=== PATIENT | male | born 1990 | race African-American/Black ===

== ENCOUNTER 2017-03-02 18:57 | Emergency (ER) | payer SELFPAY ==
[~2017-03-02 18:57] MED LIST: ACE325 PO; ALB18R INH; AMOX-559 PO; AMOX500C7 PO; BENZ100C4 PO; CEP500 PO; CEPH-13 PO; CIPR-344 PO; CLA500 PO; CYC10 PO; CYCL-277 PO; CYCL10TA29 PO; DAR100 PO; DIA5 PO; DIAZ-1 PO; DICL-195 PO; DIP25 PO; FLUO-202 PO; FLUO40CA76 PO; GUAI120L3 PO; HYDR-3074 PO; HYDR-4308 PO; HYDR-4309 PO; IBU200 PO; IBU600 PO; IBU800 PO; IBUP-1618 PO; IBUP200C71 PO; IBUP400T13 PO; IBUP800T37 PO; IBUPROFEN; KET10 PO; LOR5 PO; LOR5/325 PO; LORA-1455 PO; MECL25TA34 PO; METH-543 PO; MULT1CAP41 PO; NAP250 PO; NAP375 PO; NAPR500T75 PO; NO MEDS; NO ROUTINE MEDS; OMEP-218 PO; OMEP40CA45 PO; OND4 PO; OXYC-763 PO; OXYC1TAB54 PO; PER PO; POTA20TA10 PO; PRED-314 PO; PRED20TA6 PO; PROM-110 PO; QUET50TA21 PO; SUC1 PO; TRAM-420 PO; TRAM-627 PO
[2017-03-02] MEDS ORDERED: ORPHENADRINE 60MG/2ML INJ IM ONE (19:20)
[2017-03-02] MEDS ORDERED: KETOROLAC 30 MG/ML VIAL IVP ONE (19:20)
--- NOTE | 2017-03-02 19:21 | ER Report ---
History and Physical Time Seen By MD: 19:09 Hx. of Stated Complaint: Patient hurt back playing basketball yesterday when he planted after a jump. HPI/ROS CHIEF COMPLAINT: Back pain HISTORY OF PRESENT ILLNESS: This is a 26-year-old male who presents to the emergency department for lower back pain. Patient states that he was playing basketball yesterday afternoon came down after a jump shot and suddenly felt some lower back pain with pain, numbness and tingling down both buttocks into the back of her posterior legs bilaterally. Patient states he's been taking ibuprofen and Tylenol home with little to no relief. Patient states he just once today what is going on and doesn't even care about the medications at this point. Patient is in obvious pain while in the in the exam room. Patient denies loss of bowel or bladder. Patient has no other complaints no nausea, vomiting, coughs or colds. REVIEW OF SYSTEMS: Respiratory: No cough, no dyspnea. Cardiovascular: No chest pain, no palpitations. Gastrointestinal: No vomiting, no abdominal pain. Musculoskeletal: As above. Allergies: Coded Allergies: No Known Allergies (Verified Allergy, Mild, 01/21/17) Home Meds Active Scripts Methocarbamol (ROBAXIN) 500 Mg Tablet, 1000 MG PO QID, #32 TAB Prov:SAUNDRA ROJAS ADVERTISING STATISTICAL CLERK-BC 03/02/17 Discontinued Scripts Diclofenac Sodium (DICLOFENAC SODIUM) 75 Mg Tablet., 75 MG PO BID Y for prn, # 14 TAB Prov:HERMILA EDWARD PA-C 01/21/17 Past Medical/Surgical History Patient has a past medical and surgical history of "a minor heart attack", fracture of the ankles, elbow, sternum and both wrists, appendectomy. Reviewed Nurses Notes: Yes Hx Smoking: No Smoking Status: Current: Some Days Smoker Exposure to Second Hand Smoke?: No Hx Substance Use Disorder: No Hx Alcohol Use: No Constitutional Vital Sign - Last 24 Hours 03/02/17 03/02/17 03/02/17 03/02/17 19:00 19:02 19:02 19:07 Temp 98.9 Pulse 99 95 Resp 18 B/P (MAP) 98/87 (91) 98/87 Pulse Ox 91 96 100 O2 Delivery Room Air 03/02/17 03/02/17 03/02/17 03/02/17 19:13 19:52 19:57 20:02 Pulse 90 71 70 B/P (MAP) 137/80 (99) Pulse Ox 98 98 98 03/02/17 03/02/17 03/02/17 03/02/17 20:07 20:11 20:12 20:27 Pulse 74 70 B/P (MAP) 115/75 (88) Pulse Ox 98 96 98 03/02/17 03/02/17 03/02/17 03/02/17 20:32 20:37 20:40 20:42 Pulse 75 69 72 B/P (MAP) 134/77 (96) Pulse Ox 97 96 98 03/02/17 20:47 Pulse 73 Pulse Ox 97 Physical Exam General Appearance: The patient is alert, has no immediate need for airway protection and no current signs of toxicity. Eyes: Pupils equal and round no injection. Respiratory: Chest is non tender, lungs are clear to auscultation. Cardiac: regular rate and rhythm, no murmurs, clicks or rubs. Gastrointestinal: Abdomen is soft and non tender, no masses, bowel sounds normal. Musculoskeletal: Neck: Neck is supple and non tender. No ecchymosis, crepitus, obvious deformities to the lower back. Musculature is very tight to the lower back. Increased back pain with straight leg raise bilaterally. Extremities have full range of motion and are non tender. Skin: No rashes or lesions. DIFFERENTIAL DIAGNOSIS: After history and physical exam differential diagnosis was considered for back pain including but not limited to muscular pain, herniated disc, spine fracture, intra-abdominal causes and urinary tract infection. Medical Decision Making EKG/Imaging Imaging FACILITY: [facility] - [place] PATIENT NAME: Constantine Padilla : 1990 MR: [id number] V: [id number] EXAM DATE: [id number] ORDERING PHYSICIAN: SAUNDRA ROJAS TECHNOLOGIST: Location: [facility] - [place], [place] Patient: Constantine Padilla : 1990 Visit/Account:[id number] Date of Sevice: 03/02/2017 LUMBAR SPINE 4 VIEWS Indication: Low back pain. Comparison: 09/16/2016. Findings: AP, lateral, and bilateral obliques of the lumbar spine. Straightening of the normal lordosis. Otherwise normal alignment, vertebral body height, and intervertebral disc height. No significant degenerative changes. No pars defects. Mildly dilated small bowel loops in the abdomen measuring up to 4.2 cm in diameter. IMPRESSION: 1. Straightening of the normal lumbar lordosis. Otherwise negative lumbar spine radiographs. 2. Mildly dilated loops of small bowel measuring up to 4.2 cm, possibly small bowel obstruction or ileus. Results were called to SAUNDRA ROJAS at 03/02/2017 8:44 PM. Report Dictated By: Saundra Rawls MD at 03/02/2017 8:37 PM Report E-Signed By: Saundra Rawls MD at 03/02/2017 9:00 PM WSN:[id number] ED Course/Re-evaluation ED Course The patient was admitted to room. History and physical were obtained. Differential diagnoses were considered. A 3 view lumbar x-ray was obtained showing straightening of the normal lumbar lordosis otherwise negative. Ancillary finding was mildly dilated loops of the small bowel there was concern by radiology that he had a small bowel obstruction or an ileus. The patient states he has a normal bowel regimen had a normal bowel movement today maybe a little extra gas but otherwise normal, no pain or discomforts in the abdomen. 30 mg IM Toradol was given, 60 mg IM Norflex were given, with mild relief. I did review these results with the patient. The patient states he is ready to go home at this time. A prescription for Robaxin was called and the patient's pharmacy. The patient's was instructed to take 600-800 mg of ibuprofen as needed for his discomfort. The patient had no other questions or concerns at this time and was discharged home. The patient was also encouraged to follow up with his primary care provider for future needs. Patient was also encouraged to return to the emergency department for worsening symptoms. Decision to Disposition Date: Mar 02, 2017 Decision to Disposition Time: 21:11 Depart Departure Latest Vital Signs Vital Signs Date Time Temp Pulse Resp B/P (MAP) Pulse Ox O2 Delivery O2 Flow Rate FiO2 03/02/17 20:47 73 97 03/02/17 20:40 134/77 (96) 03/02/17 19:02 98.9 18 Room Air Impression: Primary Impression: Low back pain Condition: Improved Disposition: HOME OR SELF-CARE New Scripts Methocarbamol (ROBAXIN) 500 Mg Tablet 1000 MG PO QID, #32 TAB Prov: SAUNDRA ROJAS-BC 03/02/17 Patient Instructions: Acute Low Back Pain (ED) Additional Instructions: Drink plenty of fluids Get plenty of rest. Take 600-800mg every 6-8 hours as needed for pain. Take the Robaxin up to 4 times a day for muscle spasms. Please follow up with your primary care provider for future needs. May return to the ED for worsening symptoms. Problem Qualifiers Primary Impression: Low back pain Chronicity: acute Back pain laterality: bilateral Sciatica presence: without sciatica Qualified Codes: M54.5 - Low back pain SAUNDRA ROJAS-BC Mar 02, 2017 19:21
[2017-03-02] MEDS ORDERED: KETOROLAC 30 MG/ML VIAL IM ONE (19:45)
--- NOTE | 2017-03-02 21:03 | RADIOLOGY IMAGING REPORT ---
FACILITY: [facility] PATIENT NAME: Constantine Padilla : 1990 MR: [id number] V: [id number] EXAM DATE: ORDERING PHYSICIAN: SAUNDRA ROJAS TECHNOLOGIST: Location: [facility] - [place] Patient: Constanitne Padilla : 1990 Visit/Account:[id number] Date of Sevice: 03/02/2017 LUMBAR SPINE 4 VIEWS Indication: Low back pain. Comparison: 09/16/2016. Findings: AP, lateral, and bilateral obliques of the lumbar spine. Straightening of the normal lordosis. Otherwise normal alignment, vertebral body height, and interver tebral disc height. No significant degenerative changes. No pars defects. Mildly dilated small bowel loops in the abdomen measuring up to 4.2 cm in diameter. IMPRESSION: 1. Straightening of the normal lumbar lordosis. Otherwise negative lumbar spine radiographs. 2. Mildly dilated loops of small bowel measuring up to 4.2 cm, possibly small bowel obstruction or il eus. Results were called to SAUNDRA ROJAS at 03/02/2017 8:44 PM. Report Dictated By: Saundra Rawls MD at 03/02/2017 8:37 PM Report E-Signed By: Saundra Rawls MD at 03/02/2017 9:00 PM WSN:[id number]
[2017-03-02] MEDS ORDERED: METH-542 PO (21:16)
[2017-03-02 21:20] VITALS: BP 133/79
== END 2017-03-02 21:29 | disposition home or self-care (01) ==
LOC: ER 18:59
DX: M54.5 Low back pain (principal); Y93.67 Activity, basketball
CPT/HCPCS: 72120; 96372; 99283; J1885; J2360

== ENCOUNTER 2017-07-04 14:30 | Emergency (ER) | payer SELFPAY ==
[~2017-07-04 14:30] MED LIST changes: +METH-542 PO
--- NOTE | 2017-07-04 14:40 | ER Report ---
History and Physical Time Seen By MD: 14:39 Hx. of Stated Complaint: patient hurt L wrist about 2 weeks while playing baskwtball and then 2 days ago at work was lifting heavy lawn bag above head and heard pop and has been painful since HPI/ROS CHIEF COMPLAINT: Left wrist pain HISTORY OF PRESENT ILLNESS: This is a 27-year-old male who presents to the emergency department for left wrist pain. Patient states that about 2-3 weeks ago he was playing basketball, injured his left wrist. [place] like it was improving, then the last couple days at work while lifting he reinjured his left wrist. Patient has wrist pain to the radial and ulnar side however the majority the pain is on the ulnar side. Decreased digital design engineer strength. No numbness or tingling or obvious deformities. No nausea vomiting, diarrhea, aches or chills. REVIEW OF SYSTEMS: Respiratory: No cough, no dyspnea. Cardiovascular: No chest pain, no palpitations. Gastrointestinal: No vomiting, no abdominal pain. Musculoskeletal: As above. Allergies: Coded Allergies: No Known Allergies (Verified Allergy, Mild, 07/04/17) Home Meds Discontinued Scripts Methocarbamol (ROBAXIN) 500 Mg Tablet, 1000 MG PO QID, #32 TAB Prov:SAUNDRA ROJAS [facility]- 03/02/17 Past Medical/Surgical History Patient has a history of "a minor heart attack", bilateral ankle fractures, right elbow fracture, "sternum fracture" the right and left wrist fractures", appendectomy. Reviewed Nurses Notes: Yes Hx Smoking: No Smoking Status: Current: Some Days Smoker Exposure to Second Hand Smoke?: No Hx Substance Use Disorder: No Hx Alcohol Use: No Constitutional Vital Sign - Last 24 Hours 07/04/17 07/04/17 07/04/17 07/04/17 14:30 14:33 14:34 14:45 Temp 98.7 Pulse ??? 93 ??? Resp 16 B/P (MAP) 113/74 (87) 113/74 Pulse Ox 95 07/04/17 07/04/17 07/04/17 15:00 15:30 16:09 Pulse ??? B/P (MAP) 111/68 (82) 113/99 (104) 107/66 (80) Physical Exam General Appearance: The patient is alert, has no immediate need for airway protection and no current signs of toxicity. Eyes: Pupils equal and round no injection. Respiratory: Chest is non tender, lungs are clear to auscultation. Cardiac: regular rate and rhythm. Gastrointestinal: Abdomen is soft and non tender, no masses, bowel sounds normal. Musculoskeletal: Neck: Neck is supple and non tender. Extremities have full range of motion. Examination of the Left hand reveals no acute deformity. The patient is able to give a thumbs up sign, is able to make an okay sign, and is able to AB duct the fingers, but is painful to the radial and ulnar side of wrist. Sensation is intact over the dorsal 1st web space, the volar aspect of the 2nd finger, and the volar aspect of the 5th finger. Capillary refill is brisk.. Skin: No rashes or lesions. DIFFERENTIAL DIAGNOSIS: After history and physical exam differential diagnosis was considered for wrist fracture, tendinitis, navicular fracture and contusion. Medical Decision Making EKG/Imaging Imaging Location[place] [facility] [place] Patient: Constantine Padilla : 1990 Visit/Account:[id number] Date of Sevice: 07/04/2017 Technique: WRIST LEFT MIN 3 VIEW HISTORY: pain, injury while playing basketball and work Comparison studies: None FINDINGS: There is no acute fracture. The alignment of the left wrist is maintained. Soft tissues are unremarkable. IMPRESSION: 1. No acute osseous process. Report Dictated By: Bill Morris DO at 07/04/2017 3:19 PM Report E-Signed By: Bill Morris DO at 07/04/2017 3:20 PM WSN:[id number] ED Course/Re-evaluation ED Course The patient was admitted to a room. A history and physical were obtained. Differential diagnoses were considered. A wrist x-ray was negative for any acute osseous abnormalities. I did review these results with the patient. Patient was placed in a universal splint. I did tell the patient that I was concerned that he does have a ligament injury and instructed him to follow up with [facility] in 7-14 days for reevaluation. The patient was in agreement with this plan of care. Patient was also encouraged to keep the wrist splint on for comfort take it out every 2-3 hours to perform some gentle range of motion exercises. He is also instructed to take Advil or Tylenol as needed for the pain. Patient had no other questions or concerns at this time was discharged home. Patient was in agreement with this plan of care. Decision to Disposition Date: July 04, 2017 Decision to Disposition Time: 16:07 Depart Departure Latest Vital Signs Vital Signs Date Time Temp Pulse Resp B/P (MAP) Pulse Ox O2 Delivery O2 Flow Rate FiO2 07/04/17 16:09 107/66 (80) 07/04/17 15:00 ??? 07/04/17 14:34 98.7 16 95 Impression: Primary Impression: Left wrist sprain Condition: Improved Disposition: HOME OR SELF-CARE Referrals: [facility] New Scripts No Active Prescriptions or Reported Meds Patient Instructions: Wrist Sprain (ED) Additional Instructions: Drink plenty of water. Get plenty of rest. Keep the wrist splint on while at work take it out every 2-3 hours perform gentle range of motion exercises. Follow-up with [facility] for reevaluation of the left wrist in 7- 14 days. You can take ibuprofen or Tylenol as needed for the pain. Return to the emergency department for any other concerns or worsening symptoms. Problem Qualifiers Primary Impression: Left wrist sprain Encounter type: initial encounter Qualified Codes: S63.502A - Unspecified sprain of left wrist, initial encounter SAUNDRA ROJAS-TAMMIE July 04, 2017 14:40
--- NOTE | 2017-07-04 15:23 | RADIOLOGY IMAGING REPORT ---
FACILITY: [facility] - [place] PATIENT NAME: Constantine Padilla : 1990 MR: [id number] V: [id number] EXAM DATE: ORDERING PHYSICIAN: SAUNDRA ROJAS TECHNOLOGIST: Location: [facility] Patient: Constantine Padilla : 1990 Visit/Account:[id number] Date of Sevice: 07/04/2017 Technique: WRIST LEFT MIN 3 VIEW HISTORY: pain, injury while playing basketball and work Comparison studies: None FINDINGS: There is no acute fracture. The alignment of the left wrist is maintained. Soft tissues a re unremarkable. IMPRESSION: 1. No acute osseous process. Report Dictated By: Bill Morris DO at 07/04/2017 3:19 PM Report E-Signed By: Bill Morris DO at 07/04/2017 3:20 PM WSN:[id number]
[2017-07-04 16:09] VITALS: BP 107/66
== END 2017-07-04 16:13 | disposition home or self-care (01) ==
LOC: ER 14:32
DX: S63.502A Unspecified sprain of left wrist, initial encounter (principal)
CPT/HCPCS: 99283; L3908

== ENCOUNTER 2017-09-18 08:44 | Emergency (ER) | payer SELFPAY ==
[~2017-09-18 08:44] MED LIST changes: +IBUP-136 PO; -IBUP200C71 PO
[2017-09-18 08:47] VITALS: BP 134/87
--- NOTE | 2017-09-18 08:59 | ER Report ---
History and Physical Time Seen By MD: 08:59 Hx. of Stated Complaint: FELL ONTO RIGHT ELBOW WHILE PLAYING BASKETBALL ONE MONTH AGO. C/O CONTINUED PAIN HPI/ROS CHIEF COMPLAINT: Elbow pain HISTORY OF PRESENT ILLNESS: This is a 27-year-old male. He fell onto his right elbow about a month ago while playing basketball. He has been having pain ever since as well as welling. He cannot put a lot of pressure on the elbow without pain. He will push down on a flat surface with his hand and feels like his elbow is weak and that it might come apart, suspicious for a ligament injury. Came today because it is not improving and more swollen than usual. No fevers or chills with this. No shortness of breath. No other swelling. He has numbness and tingling in the right 4th and 5th fingers of the right hand that comes and goes. 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 Allergies: Coded Allergies: No Known Allergies (Verified Allergy, Mild, 07/04/17) Home Meds No Active Prescriptions or Reported Meds Reviewed Nurses Notes: Yes Hx Smoking: No Smoking Status: Current: Some Days Smoker Exposure to Second Hand Smoke?: No Hx Substance Use Disorder: No Hx Alcohol Use: No Constitutional Vital Sign - Last 24 Hours 09/18/17 08:47 Temp 97.6 Pulse 63 Resp 18 B/P (MAP) 134/87 Pulse Ox 97 O2 Delivery Room Air Physical Exam General: Alert, but no acute distress. Healthy appearing. Musculoskeletal: Swelling and pain diffuse in the elbow. Spares the olecranon, but hurts over both epicondyles and in the anticubital area. No pain above or below the elbow with palpation. Cannot straiten all the way, perhaps only to 10 degrees but then with significant pain. Cannot flex to 90degrees or beyond without pain. Skin: Swelling but no warmth or redness, no breakdown or rashes. Neuro: some tingling in 4th and 5th fingers at this time. Cardio: Normal pulses and capillary refill. Medical Decision Making EKG/Imaging Imaging ELBOW 3 VIEWS RIGHT Indication: Elbow pain. Basketball injury. Comparison: None Available Findings: 3 views of the right elbow are obtained. Best appreciated on the lateral view, there is an intermediate to large right elbow joint effusion identified. No definitive acute fracture is seen at the elbow. Given the presence of the joint effusion, an occult fracture must be considered in the differential. Small spurring is seen along the medial margin of the ulna-humeral joint. This is likely degenerative. No soft tissue swelling seen about the elbow. IMPRESSION: 1. Intermediate to large right elbow joint effusion. Consideration must be given to an occult fracture at the elbow given this finding in the setting of trauma. Correlate clinically. Consider immobilization and follow-up images. 2. Small degenerative spurs along the ulna-humeral joint. Report Dictated By: Hai Rosales at 09/18/2017 9:41 AM ED Course/Re-evaluation ED Course Probable ligamentous injury, but cannot entirely exclude occult fracture, but based on timing would have expected to see bone remodeling if one existed. Will splint and sling and refer to [facility] for further evaluation and treatment. Decision to Disposition Date: Sep 18, 2017 Decision to Disposition Time: 11:03 Depart Departure Latest Vital Signs Vital Signs Date Time Temp Pulse Resp B/P (MAP) Pulse Ox O2 Delivery O2 Flow Rate FiO2 09/18/17 08:47 97.6 63 18 134/87 97 Room Air Impression: Primary Impression: Elbow injury Condition: Improved Disposition: HOME OR SELF-CARE New Scripts No Active Prescriptions or Reported Meds Patient Instructions: Elbow Sprain (ED) Additional Instructions: With your elbow injury a few weeks ago, you may have had a ligamentous injury. We did not see a fracture on x-ray, but cannot entirely rule out a small fracture. We would like to have you use the splint and sling and follow-up with orthopedic surgery. Call [facility] today to schedule a follow-up appointment with them. Take Ibuprofen 200mg over the counter tablets, take 3-4 every 8 hours as needed for pain. Apply ice over the splint every 1-2 hours for about 10-15 minutes while awake. Problem Qualifiers Primary Impression: Elbow injury Encounter type: initial encounter Laterality: left Qualified Codes: S59.902A - Unspecified injury of left elbow, initial encounter AJIT MAN MD Sep 18, 2017 08:59
--- NOTE | 2017-09-18 09:50 | RADIOLOGY IMAGING REPORT ---
FACILITY: [facility] - [place] PATIENT NAME: Constantine Padilla : 1990 MR: [id number] V: [id number] EXAM DATE: ORDERING PHYSICIAN: AJIT MAN TECHNOLOGIST: Location: [facility] Patient: Constantine Padilla : 1990 Visit/Account:[id number] Date of Sevice: 09/18/2017 ELBOW 3 VIEWS RIGHT Indication: Elbow pain. Basketball injury. Comparison: None Available Findings: 3 views of the right elbow are obtained. Best appreciated on the lateral view, there is an intermedi ate to large right elbow joint effusion identified. No definitive acute fracture is seen at the elbo w. Given the presence of the joint effusion, an occult fracture must be considered in the differenti al. Small spurring is seen along the medial margin of the ulna-humeral joint. This is likely degene rative. No soft tissue swelling seen about the elbow. IMPRESSION: 1. Intermediate to large right elbow joint effusion. Consideration must be given to an occult fract ure at the elbow given this finding in the setting of trauma. Correlate clinically. Consider immobi lization and follow-up images. 2. Small degenerative spurs along the ulna-humeral joint. Report Dictated By: Hai Rosales at 09/18/2017 9:41 AM Report E-Signed By: Hai Rosales at 09/18/2017 9:46 AM WSN:[id number]
== END 2017-09-18 11:28 | disposition home or self-care (01) ==
LOC: ER 08:53
DX: S59.902A Unspecified injury of left elbow, initial encounter (principal)
CPT/HCPCS: 73080; 99283; A4565

== ENCOUNTER → 2018-01-10 | Outpatient (REF) ==
[~2018-01-10] MED LIST changes: -HYDR-4308 PO; -HYDR-4309 PO; +HYDR-653 PO; +HYDR-654 PO
--- NOTE | 2018-01-10 20:06 | RT STRESS TEST REPORT ---
FACILITY: [facility] - [place] PATIENT NAME: MARISOL TELLO : [id number] MR: [id number] V: [id number] EXAM DATE: ORDERING PHYSICIAN: DUSTIN EDWARDS TECHNOLOGIST: Rhiannon Acquisition Time: 2018-01-10 14:00:40 Total Exercise Time: 00:13:00 Test Indications: Chest Pain / Discomfort Medications: N/A Protocol: BRUCE2 Max HR: 179 BPM 93% of Pred: 192 BPM Max BP: 185/097 mmHG Max Work Load: 16.9 METS Good quality test, test was terminated due to patient request and fatigue. Patient exceeded target heart rate and remained asymptomatic throughout test. No concerning EKG changes were noted at any time during test. No ectopy noted during test. Negative stress EKG. Confirmed by Javon Ochoa ([id number]) on 01/10/2018 8:05:42 PM Referred By: Overread By: Javon Bui
== END ==
LOC: RESP 01-04 06:49 → EDSTATUS 01-04 09:00 → RESP 00:28
PROVIDERS: ATTEND Nurse Practitioner
DX: R07.9 Chest pain, unspecified (principal)
CPT/HCPCS: 93017

== ENCOUNTER 2018-01-29 08:33 | Emergency (ER) | payer SELFPAY ==
--- NOTE | 2018-01-29 08:53 | ER Report ---
History and Physical Time Seen By MD: 08:54 Hx. of Stated Complaint: LEFT SIDED CHEST PAIN RADIATING DOWN LEFT ARM SINCE 0600 HPI/ROS CHIEF COMPLAINT: chest pain HISTORY OF PRESENT ILLNESS: Patient is a 27-year-old male with no contributory past medical history who states that he woke around 6 AM this morning with sever e chest spasms with radiation down the left arm. Patient's had chest pain similar to this in the past. He is quite uncomfortable and it seems to be coming in waves. Patient is nonsmoker. He has no history of hypertension or hypercholesterolemia. REVIEW OF SYSTEMS: Constitutional: No fever, no chills. Eyes: No discharge. ENT: No sore throat. Cardiovascular: Chest pain Respiratory: No cough, no shortness of breath. Gastrointestinal: No abdominal pain, no vomiting. Genitourinary: No hematuria. Musculoskeletal: No back pain. Skin: No rashes. Neurological: No headache. Allergies: Coded Allergies: No Known Allergies (Verified Allergy, Mild, 07/04/17) Home Meds Active Scripts Cyclobenzaprine Hcl (CYCLOBENZAPRINE HCL) 10 Mg Tablet, 10 MG PO TID for Muscle Relaxant, #9 TAB 0 Refills Prov:SAHARA CRAVEN MD 01/29/18 Naproxen (NAPROXEN) 375 Mg Tablet, 375 MG PO TID, #30 TAB 0 Refills Prov:SAHARA CRAVEN MD 01/29/18 Past Medical/Surgical History Noncontributory Hx Smoking: No Smoking Status: Current: Some Days Smoker Exposure to Second Hand Smoke?: No Hx Substance Use Disorder: No Hx Alcohol Use: No Constitutional Vital Sign - Last 24 Hours 01/29/18 08:36 Temp 98.4 Pulse 90 Resp 20 B/P (MAP) 123/91 Pulse Ox 95 O2 Delivery Room Air Physical Exam General/Constitutional: Patient is awake, alert, nontoxic and in no acute respiratory distress. Head: Normocephalic and atraumatic. Eyes: Conjunctival clear, Pupils are equal and reactive to light. Ears:External canals are clear. Tympanic membranes are clear with normal landmarks and light reflex. Neck: Supple, no adenopathy. Cardiovascular: Heart is regular rate and rhythm without audible murmurs, rubs or gallops. Pulmonary: Lungs are clear to auscultation bilaterally. There are no wheezes, rales, or rhonchi. Chest rise is symmetrical Abdomen: Soft, nontender, no guarding or peritoneal signs. Extremities: No gross deformities, No peripheral cyanosis. Able to move all 4 extremities. Neuro: Alert and oriented X3, Skin: No rashes, skin is warm dry and well perfused. Medical Decision Making Data Points Result Diagram: 01/29/18 0853 01/29/18 0853 Laboratory Hematology Test 01/29/18 08:53 Red Blood Count 5.35 M/uL (4.00-5.60) Mean Corpuscular Volume 87.8 fL (80.0-96.0) Mean Corpuscular Hemoglobin 29.7 pg (26.0-33.0) Mean Corpuscular Hemoglobin Concent 33.8 g/dL (32.0-36.0) Red Cell Distribution Width 13.7 % (11.5-14.5) Mean Platelet Volume 7.3 fL (7.2-11.1) Neutrophils (%) (Auto) 57.4 % (39.4-72.5) Lymphocytes (%) (Auto) 33.1 % (17.6-49.6) Monocytes (%) (Auto) 8.4 % (4.1-12.4) Eosinophils (%) (Auto) 0.6 % (0.4-6.7) Basophils (%) (Auto) 0.5 % (0.3-1.4) Nucleated RBC Relative Count (auto) 0.1 /100WBC Neutrophils # (Auto) 2.8 K/uL (2.0-7.4) Lymphocytes # (Auto) 1.6 K/uL (1.3-3.6) Monocytes # (Auto) 0.4 K/uL (0.3-1.0) Eosinophils # (Auto) 0.0 K/uL (0.0-0.5) Basophils # (Auto) 0.0 K/uL (0.0-0.1) Nucleated RBC Absolute Count (auto) 0.00 K/uL Prothrombin Time 13.0 seconds (12.0-14.4) Prothromb Time International Ratio 0.98 Activated Partial Thromboplast Time 29 seconds (23-35) Sodium Level 143 mmol/L (137-145) Potassium Level 3.8 mmol/L (3.5-5.0) Chloride Level 108 mmol/L (98-107) Carbon Dioxide Level 25 mmol/L (22-30) Blood Urea Nitrogen 11 mg/dl (9-21) Creatinine 1.00 mg/dl (0.66-1.25) Glomerular Filtration Rate Calc > 60.0 Random Glucose 75 mg/dl (75-110) Calcium Level 9.3 mg/dl (8.4-10.2) Total Bilirubin 0.6 mg/dl (0.2-1.3) Aspartate Amino Transf (AST/SGOT) 44 U/L (0-35) Alanine Aminotransferase (ALT/SGPT) 43 U/L (0-56) Alkaline Phosphatase 42 U/L (0-126) Troponin I < 0.012 ng/ml Total Protein 7.3 g/dl (6.3-8.2) Albumin 4.4 g/dl (3.5-5.0) Chemistry Test 01/29/18 08:53 White Blood Count 4.9 k/uL (4.5-11.0) Red Blood Count 5.35 M/uL (4.00-5.60) Hemoglobin 15.9 g/dL (14.0-18.0) Hematocrit 47.0 % (42.0-52.0) Mean Corpuscular Volume 87.8 fL (80.0-96.0) Mean Corpuscular Hemoglobin 29.7 pg (26.0-33.0) Mean Corpuscular Hemoglobin Concent 33.8 g/dL (32.0-36.0) Red Cell Distribution Width 13.7 % (11.5-14.5) Platelet Count 239 K/uL (150-450) Mean Platelet Volume 7.3 fL (7.2-11.1) Neutrophils (%) (Auto) 57.4 % (39.4-72.5) Lymphocytes (%) (Auto) 33.1 % (17.6-49.6) Monocytes (%) (Auto) 8.4 % (4.1-12.4) Eosinophils (%) (Auto) 0.6 % (0.4-6.7) Basophils (%) (Auto) 0.5 % (0.3-1.4) Nucleated RBC Relative Count (auto) 0.1 /100WBC Neutrophils # (Auto) 2.8 K/uL (2.0-7.4) Lymphocytes # (Auto) 1.6 K/uL (1.3-3.6) Monocytes # (Auto) 0.4 K/uL (0.3-1.0) Eosinophils # (Auto) 0.0 K/uL (0.0-0.5) Basophils # (Auto) 0.0 K/uL (0.0-0.1) Nucleated RBC Absolute Count (auto) 0.00 K/uL Prothrombin Time 13.0 seconds (12.0-14.4) Prothromb Time International Ratio 0.98 Activated Partial Thromboplast Time 29 seconds (23-35) Glomerular Filtration Rate Calc > 60.0 Calcium Level 9.3 mg/dl (8.4-10.2) Total Bilirubin 0.6 mg/dl (0.2-1.3) Aspartate Amino Transf (AST/SGOT) 44 U/L (0-35) Alanine Aminotransferase (ALT/SGPT) 43 U/L (0-56) Alkaline Phosphatase 42 U/L (0-126) Troponin I < 0.012 ng/ml Total Protein 7.3 g/dl (6.3-8.2) Albumin 4.4 g/dl (3.5-5.0) Coagulation Test 01/29/18 08:53 Prothrombin Time 13.0 seconds Prothromb Time International Ratio 0.98 Activated Partial Thromboplast Time 29 seconds EKG/Imaging EKG Interpretation EKG shows normal sinus rhythm with right axis Monitor Interpretation: Normal Sinus Rhythm ED Course/Re-evaluation ED Course 01/29/2018 9:49:55 am workup negative. Suspect chest wall pain. I will discharge home with pain medicine and muscle relaxant. Decision to Disposition Date: Jan 29, 2018 Decision to Disposition Time: 09:43 Depart Departure Latest Vital Signs Vital Signs Date Time Temp Pulse Resp B/P (MAP) Pulse Ox O2 Delivery O2 Flow Rate FiO2 01/29/18 08:36 98.4 90 20 123/91 95 Room Air Impression: Primary Impression: Chest wall pain Condition: Improved Disposition: HOME OR SELF-CARE New Scripts Cyclobenzaprine Hcl (CYCLOBENZAPRINE HCL) 10 Mg Tablet 10 MG PO TID for Muscle Relaxant, #9 TAB 0 Refills Prov: SAHARA CRAVEN MD 01/29/18 Naproxen (NAPROXEN) 375 Mg Tablet 375 MG PO TID, #30 TAB 0 Refills Prov: SAHARA CRAVEN MD 01/29/18 Departure Forms: ER Transition Record, Medications Reconciliation, Off Work/School Form, School or Work Release?: Work Number of days to be released: 1 Patient Portal Information Patient Instructions: Chest Wall Pain (ED) SAHARA CRAVEN MD Jan 29, 2018 08:53
[2018-01-29] MEDS ORDERED: ASPIRIN 81 MG CHEW PO ONE (08:55)
--- NOTE | 2018-01-29 08:55 | EKG ---
FACILITY: [facility] PATIENT NAME: MARISOL TELLO : [id number] MR: [id number] V: [id number] EXAM DATE: ORDERING PHYSICIAN: SAHARA CRAVEN TECHNOLOGIST: RADHA Test Reason : CHEST PAIN Blood Pressure : / mmHG Vent. Rate : 079 BPM Atrial Rate : 079 BPM P-R Int : 162 ms QRS Dur : 086 ms QT Int : 366 ms P-R-T Axes : 073 090 060 degrees QTc Int : 419 ms Normal sinus rhythm Possible Left atrial enlargement No ST-T abnormalities When compared with ECG of 14-DEC-2013 14:43, No significant change was found Confirmed by SABINE ROSENTHAL ([id number]) on 01/29/2018 10:32:58 AM Referred By: HERBER Confirmed By:SABINE ROSENTHAL
[2018-01-29] MEDS ORDERED: KETOROLAC 15 MG/ML VIAL IVP ONE (09:00)
[2018-01-29] MEDS ORDERED: LORazepam 2 MG/ML VIAL IVP ONE (09:00)
[2018-01-29] MEDS ORDERED: ONDANSETRON 4 MG/2 ML VIAL IVP ONE (09:00)
[2018-01-29 09:03] LABS: PLATELET COUNT, AUTOMATED 239 K/uL (150-450)
[2018-01-29 09:08] LABS: INR 0.98
[2018-01-29 09:30] VITALS: BP 106/76
--- NOTE | 2018-01-29 09:37 | RADIOLOGY IMAGING REPORT ---
FACILITY: [facility] [place] PATIENT NAME: Constantine Padilla : 1990 MR: [id number] V: [id number] EXAM DATE: ORDERING PHYSICIAN: SAHARA CRAVEN TECHNOLOGIST: Location: [facility] [place] Patient: Constantine Padilla : 1990 Visit/Account:[id number] Date of Sevice: 01/29/2018 Study: Frontal and lateral views of the chest Indication: Chest pain Comparison study: June 17, 2015 Findings: PA and lateral views of the chest demonstrate no evidence of acute infiltrate. There is no evidence of pleural effusion. There is no evidence of pneumothorax. The mediastinal, cardiac, and diaphragmatic contours are unremarkable. The visualized bony structures are unremarkable. IMPRESSION: Unremarkable chest. Report Dictated By: Jordon Douglas at 01/29/2018 9:32 AM Report E-Signed By: Jordon Douglas at 01/29/2018 9:33 AM [id number]
[2018-01-29] MEDS ORDERED: CYCL10TA29 PO (09:44)
[2018-01-29] MEDS ORDERED: NAPR375T44 PO (09:44)
== END 2018-01-29 10:00 | disposition home or self-care (01) ==
LOC: ER 08:41
DX: R07.89 Other chest pain (principal)
CPT/HCPCS: 71046; 84484; 85025; 85610; 85730; 93005; 96374; 96375; 99284; J1885; J2060; J2405; 82040; 82247; 82310; 82374; 82435; 82565; 82947; 84075; 84132; 84155; 84295; 84450; 84460; 84520

== ENCOUNTER 2018-02-11 15:12 | Emergency (ER) | payer SELFPAY ==
[~2018-02-11 15:12] MED LIST changes: +NAPR375T44 PO
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
[2018-02-11] MEDS ORDERED: ASPIRIN 81 MG CHEW PO ONE (15:40)
[2018-02-11 15:59] LABS: PLATELET COUNT, AUTOMATED 239 K/uL (150-450)
--- NOTE | 2018-02-11 16:17 | RADIOLOGY IMAGING REPORT ---
FACILITY: [facility] PATIENT NAME: Constantine Padilla : 1990 MR: [id number] V: [id number] EXAM DATE: ORDERING PHYSICIAN: EVERTON MUNROE TECHNOLOGIST: Location: [facility] [place] Patient: Constantine Padilla : 1990 Visit/Account:[id number] Date of Sevice: 02/11/2018 HISTORY: Respiratory distress. DATE: 02/11/2018 3:36 PM TECHNIQUE: CHEST PA AND LAT COMPARISON: none FINDINGS: The cardiomediastinal silhouette is of normal size and contour. No pleural effusion. No pne umothorax. No consolidation. The lungs are adequately expanded. IMPRESSION: No acute findings. Report Dictated By: Jennifer Anna MD at 02/11/2018 4:10 PM Report E-Signed By: Jennifer Anna MD at 02/11/2018 4:13 PM [id number]
[2018-02-11 16:30] VITALS: BP 110/74
[2018-02-11] MEDS ORDERED: KET10 PO (16:35)
[2018-02-11] MEDS ORDERED: ONDA4TAB97 PO (16:35)
--- NOTE | 2018-02-11 16:35 | EKG ---
FACILITY: [facility] [place] PATIENT NAME: MARISOL TELLO : [id number] MR: [id number] V: [id number] EXAM DATE: ORDERING PHYSICIAN: EVERTON MUNROE TECHNOLOGIST: RADHA Test Reason : CHEST PAIN Blood Pressure : / mmHG Vent. Rate : 067 BPM Atrial Rate : 067 BPM P-R Int : 186 ms QRS Dur : 090 ms QT Int : 376 ms P-R-T Axes : 042 078 045 degrees QTc Int : 397 ms Sinus rhythm with marked sinus arrhythmia No ST-T abnormalities When compared with ECG of 29-JAN-2018 08:46, No significant change was found Confirmed by SABINE ROSENTHAL ([id number]) on 02/11/2018 10:08:05 PM Referred By: SERGE Confirmed By:SABINE ROSENTHAL
== END 2018-02-11 16:52 | disposition home or self-care (01) ==
LOC: ER 15:39
DX: R07.9 Chest pain, unspecified (principal)
CPT/HCPCS: 71046; 82040; 82247; 82310; 82374; 82435; 82565; 82947; 84075; 84132; 84155; 84295; 84450; 84460; 84484; 84520; 85025; 85379; 93005; 99284

== ENCOUNTER 2018-04-23 08:33 | Emergency (ER) | payer SELFPAY ==
[~2018-04-23 08:33] MED LIST changes: +ONDA4TAB97 PO
[2018-04-23 08:39] VITALS: BP 141/95
[2018-04-23] MEDS ORDERED: NS(*) 0.9% 1000 ML BAG 1,000 ML IV ONE (08:50)
[2018-04-23] MEDS ORDERED: ONDANSETRON 4 MG/2 ML VIAL IVP ONE (08:50)
--- NOTE | 2018-04-23 08:51 | ER Report ---
History and Physical Time Seen By MD: 08:35 Hx. of Stated Complaint: nausea vomiting diarrhea x3days, congestion, cough, trouble breathing HPI/ROS CHIEF COMPLAINT: Nausea, vomiting, diarrhea, myalgias, cough HISTORY OF PRESENT ILLNESS: Patient has had 3 days of consolation of symptoms that include cough that is nonproductive, muscle aches, runny nose, mild headache. Over the last day has had vomiting and diarrhea both 5-10 times, no bloody or black. He has continued nausea and crampy abdominal pain. REVIEW OF SYSTEMS: Constitutional: chills Eyes: No discharge. ENT: mild sore throat Cardiovascular: No chest pain, no palpitations. Respiratory: above Gastrointestinal: above Genitourinary: no dysuria Musculoskeletal: myalgias Skin: No rashes. Neurological: mild headache Remainder of the 14 system rev: Yes Allergies: Coded Allergies: No Known Allergies (Verified Allergy, Mild, 07/04/17) Home Meds Active Scripts Ondansetron Hcl (ZOFRAN) 4 Mg Tablet, 4 MG PO Q6H PRN for NAUSEA/VOMITING, #20 TAB Prov:EVERTON MUNROE 02/11/18 Ketorolac Tromethamine (KETOROLAC TROMETHAMINE) 10 Mg Tab, 10 MG PO Q6H, #20 TAB Prov:EVERTON MUNROE 02/11/18 Cyclobenzaprine Hcl (CYCLOBENZAPRINE HCL) 10 Mg Tablet, 10 MG PO TID for Muscle Relaxant, #9 TAB 0 Refills Prov:SAHARA CRAVEN MD 01/29/18 Naproxen (NAPROXEN) 375 Mg Tablet, 375 MG PO TID, #30 TAB 0 Refills Prov:SAHARA CRAVEN MD 01/29/18 Hx Smoking: No Smoking Status: Current: Some Days Smoker Exposure to Second Hand Smoke?: No Hx Substance Use Disorder: No Hx Alcohol Use: No Constitutional Vital Sign - Last 24 Hours 04/23/18 08:37 Temp 99.0 Pulse 95 Resp 22 B/P (MAP) 141/95 Pulse Ox 93 O2 Delivery Room Air Physical Exam General Appearance: The patient is alert, has no immediate need for airway protection and no signs of toxicity. Eyes: Pupils equal and round no pallor or injection. ENT, Mouth: Mucous membranes are moist. Respiratory: There are no retractions, lungs are clear to auscultation. Cardiovascular: Regular rate and rhythm. Gastrointestinal: abdomen; slightly increased bowel sounds, mild ttp throughout, ann luq. No masses Neurological: alert, oriented, no focal deficits Skin: Warm and dry, no rashes. Musculoskeletal: Extremities are nontender, nonswollen and have full range of motion. DIFFERENTIAL DIAGNOSIS: After history and physical exam differential diagnosis was considered for adult fever including but not limited to viral syndromes including influenza, urinary tract infection, pneumonia and sepsis abdominal pain including but not limited to appendicitis, cholecystitis, gastritis and urinary tract infection. Medical Decision Making Data Points Result Diagram: 04/23/18 0908 04/23/18 0908 Laboratory Hematology Test 04/23/18 08:48 04/23/18 09:08 Influenza Virus Type A (PCR) Positive (NEGATIVE) Influenza Virus Type B (PCR) Negative (NEGATIVE) Red Blood Count 5.44 M/uL (4.00-5.60) Mean Corpuscular Volume 85.6 fL (80.0-96.0) Mean Corpuscular Hemoglobin 28.9 pg (26.0-33.0) Mean Corpuscular Hemoglobin Concent 33.8 g/dL (32.0-36.0) Red Cell Distribution Width 13.5 % (11.5-14.5) Mean Platelet Volume 8.0 fL (7.2-11.1) Neutrophils (%) (Auto) 85.6 % (39.4-72.5) Lymphocytes (%) (Auto) 5.7 % (17.6-49.6) Monocytes (%) (Auto) 8.5 % (4.1-12.4) Eosinophils (%) (Auto) 0.0 % (0.4-6.7) Basophils (%) (Auto) 0.2 % (0.3-1.4) Nucleated RBC Relative Count (auto) 0.0 /100WBC Neutrophils # (Auto) 8.0 K/uL (2.0-7.4) Lymphocytes # (Auto) 0.5 K/uL (1.3-3.6) Monocytes # (Auto) 0.8 K/uL (0.3-1.0) Eosinophils # (Auto) 0.0 K/uL (0.0-0.5) Basophils # (Auto) 0.0 K/uL (0.0-0.1) Nucleated RBC Absolute Count (auto) 0.00 K/uL Sodium Level 139 mmol/L (137-145) Potassium Level 3.5 mmol/L (3.5-5.0) Chloride Level 104 mmol/L (98-107) Carbon Dioxide Level 22 mmol/L (22-30) Blood Urea Nitrogen 11 mg/dl (9-21) Creatinine 0.90 mg/dl (0.66-1.25) Glomerular Filtration Rate Calc > 60.0 Random Glucose 100 mg/dl (75-110) Calcium Level 9.5 mg/dl (8.4-10.2) Total Bilirubin 0.6 mg/dl (0.2-1.3) Aspartate Amino Transf (AST/SGOT) 37 U/L (0-35) Alanine Aminotransferase (ALT/SGPT) 37 U/L (0-56) Alkaline Phosphatase 56 U/L (0-126) Total Protein 7.8 g/dl (6.3-8.2) Albumin 4.8 g/dl (3.5-5.0) Lipase 36 U/L (23-300) Chemistry Test 04/23/18 08:48 04/23/18 09:08 Influenza Virus Type A (PCR) Positive (NEGATIVE) Influenza Virus Type B (PCR) Negative (NEGATIVE) White Blood Count 9.4 k/uL (4.5-11.0) Red Blood Count 5.44 M/uL (4.00-5.60) Hemoglobin 15.8 g/dL (14.0-18.0) Hematocrit 46.6 % (42.0-52.0) Mean Corpuscular Volume 85.6 fL (80.0-96.0) Mean Corpuscular Hemoglobin 28.9 pg (26.0-33.0) Mean Corpuscular Hemoglobin Concent 33.8 g/dL (32.0-36.0) Red Cell Distribution Width 13.5 % (11.5-14.5) Platelet Count 194 K/uL (150-450) Mean Platelet Volume 8.0 fL (7.2-11.1) Neutrophils (%) (Auto) 85.6 % (39.4-72.5) Lymphocytes (%) (Auto) 5.7 % (17.6-49.6) Monocytes (%) (Auto) 8.5 % (4.1-12.4) Eosinophils (%) (Auto) 0.0 % (0.4-6.7) Basophils (%) (Auto) 0.2 % (0.3-1.4) Nucleated RBC Relative Count (auto) 0.0 /100WBC Neutrophils # (Auto) 8.0 K/uL (2.0-7.4) Lymphocytes # (Auto) 0.5 K/uL (1.3-3.6) Monocytes # (Auto) 0.8 K/uL (0.3-1.0) Eosinophils # (Auto) 0.0 K/uL (0.0-0.5) Basophils # (Auto) 0.0 K/uL (0.0-0.1) Nucleated RBC Absolute Count (auto) 0.00 K/uL Glomerular Filtration Rate Calc > 60.0 Calcium Level 9.5 mg/dl (8.4-10.2) Total Bilirubin 0.6 mg/dl (0.2-1.3) Aspartate Amino Transf (AST/SGOT) 37 U/L (0-35) Alanine Aminotransferase (ALT/SGPT) 37 U/L (0-56) Alkaline Phosphatase 56 U/L (0-126) Total Protein 7.8 g/dl (6.3-8.2) Albumin 4.8 g/dl (3.5-5.0) Lipase 36 U/L (23-300) ED Course/Re-evaluation ED Course Patient has signs and symptoms consistent with flu. Initially with GI symptoms as well, improved with Zofran and fluids. Tolerating by mouth. Hemodynamically stable. We'll discharge with precautions. As he is otherwise healthy male and has had more than 48 hours symptoms do not recommend Tamiflu. Decision to Disposition Date: Apr 23, 2018 Decision to Disposition Time: 09:49 Depart Departure Latest Vital Signs Vital Signs Date Time Temp Pulse Resp B/P (MAP) Pulse Ox O2 Delivery O2 Flow Rate FiO2 04/23/18 08:37 99.0 95 22 141/95 93 Room Air Impression: Primary Impression: Influenza A Additional Impression: Vomiting Condition: Improved Disposition: HOME OR SELF-CARE New Scripts Ondansetron 4 Mg Odt (ONDANSETRON 4 MG ODT) 4 Mg Tab.rapdis 4 MG PO Q8H for Nausea, #10 TAB Prov: HILE,SAHARA C MD 04/23/18 Departure Forms: ER Transition Record, Medications Reconciliation, Off Work/School Form, School or Work Release?: Work Number of days to be released: 2 Patient Portal Information Patient Instructions: Acute Nausea and Vomiting (ED), Influenza (DC) Additional Instructions: Please return if you are worse, cannot tolerate fluids, have difficulty breathing, or any concerns. Problem Qualifiers Additional Impression: Vomiting Vomiting type: unspecified Vomiting Intractability: non-intractable Nausea presence: with nausea Qualified Codes: R11.2 - Nausea with vomiting, unspecified SAHARA SOLOMON MD Apr 23, 2018 08:51
[2018-04-23 09:17] LABS: PLATELET COUNT, AUTOMATED 194 K/uL (150-450)
--- NOTE | 2018-04-23 09:41 | RADIOLOGY IMAGING REPORT ---
FACILITY: [facility] PATIENT NAME: Constantine Padilla : 1990 MR: [id number] V: [id number] EXAM DATE: ORDERING PHYSICIAN: SAHARA SOLOMON TECHNOLOGIST: Location: [facility] Patient: Constantine Padilla : 1990 Visit/Account:[id number] Date of Sevice: 04/23/2018 CHEST PA LAT Indication: dyspnea Comparison: Chest x-ray 02/11/2018 Findings: Lungs: Clear. Mediastinum/pulmonary vasculature: Heart size and pulmonary vasculature are normal. Bones/soft tissues: Normal. IMPRESSION: Clear lungs. Report Dictated By: Balta Angulo at 04/23/2018 9:36 AM Report E-Signed By: Balta Angulo at 04/23/2018 9:36 AM WILLOWN:MARTINA
[2018-04-23] MEDS ORDERED: ONDA4TAB9 PO (09:51)
== END 2018-04-23 10:05 | disposition home or self-care (01) ==
LOC: ER 08:45
DX: J09.X2 Influenza due to identified novel influenza A virus with other respiratory manifestations (principal)
CPT/HCPCS: 71046; 83690; 85025; 87502; 96361; 96374; 99283; J2405; J7030; 82040; 82247; 82310; 82374; 82435; 82565; 82947; 84075; 84132; 84155; 84295; 84450; 84460; 84520

== ENCOUNTER 2018-06-28 02:03 | Emergency (ER) | payer SELFPAY ==
[~2018-06-28 02:03] MED LIST changes: +ONDA4TAB9 PO
[2018-06-28 02:05] VITALS: BP 111/82
--- NOTE | 2018-06-28 02:05 | ER Report ---
History and Physical Time Seen By MD: 02:05 HPI/ROS CHIEF COMPLAINT: Low back pain HISTORY OF PRESENT ILLNESS: 28-year-old black male presents ambulatory the ER unable to sleep due to severe back pain. Patient was playing basketball last evening when he went in for a layup and landed hard on his right foot. He felt a sudden pain in his lower back. He notes pain in his left buttocks and lower back without radiation to lower extremity. Patient notes no saddle anesthesia or incontinence. Patient denies a history of back problems or degenerative disc disease. Patient notes acute spasms of pain. He also notes aggravation with movement. REVIEW OF SYSTEMS: Respiratory: No cough, no dyspnea. Cardiovascular: No chest pain, no palpitations. Gastrointestinal: No vomiting, no abdominal pain. Musculoskeletal: As above Allergies: Coded Allergies: No Known Allergies (Verified Allergy, Mild, 06/28/18) Home Meds Active Scripts Cyclobenzaprine Hcl (CYCLOBENZAPRINE HCL) 10 Mg Tablet, 10 MG PO TID PRN for muscle spasm relief, #9 TAB Prov:FAM ALONSO DO 06/28/18 Naproxen (NAPROXEN) 375 Mg Tablet, 375 MG PO TID PRN for pain, #21 TAB Prov:CELESTEFAM Mccabe DO 06/28/18 Discontinued Scripts Ondansetron 4 Mg Odt (ONDANSETRON 4 MG ODT) 4 Mg Tab.rapdis, 4 MG PO Q8H for Nausea, #10 TAB Prov:SAHARA SOLOMON MD 04/23/18 Ondansetron Hcl (ZOFRAN) 4 Mg Tablet, 4 MG PO Q6H PRN for NAUSEA/VOMITING, #20 TAB Prov:EVERTON MUNROE 02/11/18 Ketorolac Tromethamine (KETOROLAC TROMETHAMINE) 10 Mg Tab, 10 MG PO Q6H, #20 TAB Prov:EVERTON MUNROE 02/11/18 Cyclobenzaprine Hcl (CYCLOBENZAPRINE HCL) 10 Mg Tablet, 10 MG PO TID for Muscle Relaxant, #9 TAB 0 Refills Prov:SAHARA CRAVEN MD 01/29/18 Naproxen (NAPROXEN) 375 Mg Tablet, 375 MG PO TID, #30 TAB 0 Refills Prov:SAHARA CRAEVN MD 01/29/18 Reviewed Nurses Notes: Yes Old Medical Records Reviewed: Yes Hx Smoking: No Smoking Status: Current: Some Days Smoker Exposure to Second Hand Smoke?: No Hx Substance Use Disorder: No Hx Alcohol Use: No Constitutional Vital Sign - Last 24 Hours 06/28/18 02:05 Temp 97.5 Pulse 88 Resp 16 B/P (MAP) 111/82 Pulse Ox 95 O2 Delivery Room Air Physical Exam General Appearance: The patient is alert, has no immediate need for airway protection and no current signs of toxicity. Mild distress Eyes: Pupils equal and round no injection. Respiratory: Chest is non tender, lungs are clear to auscultation. Cardiac: regular rate and rhythm Gastrointestinal: Abdomen is soft and non tender, no masses, bowel sounds normal. Musculoskeletal: Neck: Neck is supple and non tender. Back:, There is no tenderness in the midline over the spinous processes in the lumbar region. There is no tenderness over the paraspinous muscles in the lumbar region. There is tenderness over the left sacroiliac joint Extremities have full range of motion and are non tender. Skin: No rashes or lesions. DIFFERENTIAL DIAGNOSIS: After history and physical exam differential diagnosis was considered for back pain including but not limited to muscular pain, herniated disc, spine fracture, intra-abdominal causes and urinary tract infection. Medical Decision Making ED Course/Re-evaluation ED Course Patient was admitted to an examination room. H&P was done. The differential diagnoses was considered. On clinical examination. Patient has a nonfocal neurologic examination. He has a negative straight-leg raise bilaterally. He has tenderness of the sacroiliac joint on the left side. Patient be treated with Naprosyn and cyclobenzaprine. He is advised to apply heat to his back. He is given a take-home pack of Lortab 2 tablets for temporary pain relief tonight. Patient advised to follow-up with primary care if unimproved in 3-5 days. Decision to Disposition Date: Jun 28, 2018 Decision to Disposition Time: 02:19 Depart Departure Latest Vital Signs Vital Signs Date Time Temp Pulse Resp B/P (MAP) Pulse Ox O2 Delivery O2 Flow Rate FiO2 06/28/18 02:05 97.5 88 16 111/82 95 Room Air Impression: Primary Impression: Lumbosacral strain Condition: Improved Disposition: HOME OR SELF-CARE Referrals: MASSIEL JEFFREY MD, FARRUKH MD New Scripts Cyclobenzaprine Hcl (CYCLOBENZAPRINE HCL) 10 Mg Tablet 10 MG PO TID PRN for muscle spasm relief, #9 TAB Prov: FAM ALONSO DO 06/28/18 Naproxen (NAPROXEN) 375 Mg Tablet 375 MG PO TID PRN for pain, #21 TAB Prov: FAM ALONSO DO 06/28/18 Patient Instructions: Acute Low Back Pain (ED), Low Back Strain (ED) Additional Instructions: Apply heating pad to your low back to help the muscles relax Take medications as prescribed Follow-up with primary care if unimproved in 3-5 days Problem Qualifiers Primary Impression: Lumbosacral strain Encounter type: initial encounter Qualified Codes: S39.012A - Strain of muscle, fascia and tendon of lower back, initial encounter FAM ALONSO DO Jun 28, 2018 02:05
[2018-06-28] MEDS ORDERED: CYCL10TA29 PO (02:21)
[2018-06-28] MEDS ORDERED: NAPR375T44 PO (02:21)
[2018-06-28] MEDS ORDERED: ACET/HYDROC 5/325MG TH ER ONLY 2 TAB/BOTTLE PO ONE (02:25)
[2018-06-28] MEDS ORDERED: CYCLOBENZAPRINE HCL 10 MG TH PO ONE (02:25)
== END 2018-06-28 02:32 | disposition home or self-care (01) ==
LOC: ER 02:18
DX: S39.012A Strain of muscle, fascia and tendon of lower back, initial encounter (principal)
CPT/HCPCS: 99283